=== PATIENT | female | born 1980 | race Caucasian/White ===

== ENCOUNTER → 2016-09-09 | Outpatient (CLI) | payer OTHER | LOC: LAB 08:08 | DX: Z00.00 Encounter for general adult medical examination without abnormal findings (principal); D22.4 Melanocytic nevi of scalp and neck ==

== ENCOUNTER → 2017-04-27 | Outpatient (CLI) | payer OTHER | LOC: RAD 08:57 | DX: M47.816 Spondylosis without myelopathy or radiculopathy, lumbar region (principal) ==

== ENCOUNTER → 2017-05-17 | Outpatient (CLI) | payer OTHER | LOC: RAD 10:00 | DX: M47.816 Spondylosis without myelopathy or radiculopathy, lumbar region (principal); M51.46 Schmorl's nodes, lumbar region ==

== ENCOUNTER 2017-05-19 15:00 | Outpatient (RCR) | payer OTHER | END 2017-05-19 15:30 | disposition home or self-care (01) | LOC: PT 15:00 | DX: M54.5 Low back pain (principal) | CPT/HCPCS: G0283-GP ==

== ENCOUNTER → 2017-07-06 | Outpatient (CLI) | payer OTHER ==
[2017-07-06 09:23] LABS: EOS # 0.2 (0.04-0.40); EOS % 1.4 % (1.0-5.0); HEMATOCRIT 37.9 % (37.0-47.0); HEMOGLOBIN 11.9 g/dL (12.5-16.0); MEAN CELL VOLUME 83 fl (78-100); MEAN CORPUSCULAR HEMOGLOBIN 26 pg (27-31); MEAN CORPUSCULAR HGB CONC 31 g/dL (33-37); MEAN PLATELET VOLUME 8.8 fl (7.4-10.4); MONO # 0.7 (0.20-0.80); NEU # 8.2 (1.40-6.50); PLATELET COUNT 372 K/mm3 (130-400); RED BLOOD COUNT 4.57 M/mm3 (4.10-5.30); RED CELL DISTRIBUTION WIDTH 15.6 % (11.5-14.5); WHITE BLOOD COUNT 11.1 K/mm3 (4.8-10.8)
== END ==
LOC: LAB 09:09
PROVIDERS: Nurse Practitioner Family
DX: R42 Dizziness and giddiness (principal); R45.4 Irritability and anger; E28.2 Polycystic ovarian syndrome; Z88.5 Allergy status to narcotic agent

== ENCOUNTER → 2017-09-28 | Outpatient (CLI) | payer OTHER | LOC: LAB 07:59 | DX: E11.9 Type 2 diabetes mellitus without complications (principal); Z88.5 Allergy status to narcotic agent ==

== ENCOUNTER → 2018-02-01 | Outpatient (CLI) | payer OTHER ==
[2018-02-01 09:26] LABS: EOS # 0.2 (0.04-0.40); EOS % 2.4 % (1.0-5.0); HEMATOCRIT 35.5 % (37.0-47.0); HEMOGLOBIN 11.1 g/dL (12.5-16.0); LYMPH# 2.1 (1.50-4.00); MEAN CELL VOLUME 87 fl (78-100); MEAN CORPUSCULAR HEMOGLOBIN 27 pg (27-31); MEAN CORPUSCULAR HGB CONC 31 g/dL (33-37); MEAN PLATELET VOLUME 8.7 fl (7.4-10.4); MONO # 0.6 (0.20-0.80); NEU # 4.7 (1.40-6.50); PLATELET COUNT 392 K/mm3 (130-400); RED BLOOD COUNT 4.09 M/mm3 (4.10-5.30); RED CELL DISTRIBUTION WIDTH 14.8 % (11.5-14.5); WHITE BLOOD COUNT 7.6 K/mm3 (4.8-10.8)
[2018-02-01 09:30] LABS: ALBUMIN 4.2 g/dL (3.5-5.0); BUN/CREATININE RATIO 16.9 (6.0-26.0); CALCIUM 8.8 mg/dL (8.4-10.2); POTASSIUM 4.2 mmol/L (3.6-5.0); TOTAL BILIRUBIN 0.4 mg/dL (0.2-1.3); TOTAL PROTEIN 7.6 g/dL (6.3-8.2)
[2018-02-01 10:34] LABS: URINE APPEARANCE HAZY; URINE BILIRUBIN NEGATIVE (NEGATIVE); URINE BLOOD TRACE (NEGATIVE); URINE COLOR YELLOW; URINE GLUCOSE NEGATIVE (NEGATIVE); URINE KETONE NEGATIVE (NEGATIVE); URINE LEUKOCYTE ESTERASE 2+ (NEGATIVE); URINE MUCUS PRESENT (NOT PRESENT); URINE NITRATE NEGATIVE (NEGATIVE); URINE PROTEIN(semi-quant) TRACE mg/dL (NEGATIVE); URINE UROBILINOGEN NORMAL (NORMAL); URINE WBC 16-30 /hpf (0-3)
== END ==
LOC: RAD 08:55
PROVIDERS: Nurse Practitioner Family
DX: R10.2 Pelvic and perineal pain (principal); E28.2 Polycystic ovarian syndrome; R42 Dizziness and giddiness

== ENCOUNTER → 2018-07-11 | Outpatient (CLI) | payer OTHER ==
[~2018-07-11] VITALS: Ht 167.6 cm; Wt 95.0 kg
[~2018-07-11] MED LIST: CLARITIN 1010 MG/TAB PO; HCTZ 25MG25 MG PO; IRON90 MG PO; MULTIVITAMIN1 SGL PO; PROBIOTIC1 EAC1 PO
[2018-07-11 08:44] LABS: EOS # 0.2 (0.04-0.40); EOS % 2.6 % (1.0-5.0); HEMATOCRIT 39.9 % (37.0-47.0); LYMPH# 1.7 (1.50-4.00); MEAN CELL VOLUME 85 fl (78-100); MEAN CORPUSCULAR HEMOGLOBIN 28 pg (27-31); MEAN CORPUSCULAR HGB CONC 33 g/dL (33-37); MEAN PLATELET VOLUME 8.7 fl (7.4-10.4); MONO # 0.7 (0.20-0.80); NEU # 5.9 (1.40-6.50); PLATELET COUNT 400 K/mm3 (130-400); RED BLOOD COUNT 4.68 M/mm3 (4.10-5.30); RED CELL DISTRIBUTION WIDTH 14.7 % (11.5-14.5); WHITE BLOOD COUNT 8.6 K/mm3 (4.8-10.8)
[2018-07-11 09:15] LABS: ALBUMIN 4.9 g/dL (3.5-5.0); CALCIUM 9.5 mg/dL (8.4-10.2); POTASSIUM 4.1 mmol/L (3.6-5.0); TOTAL BILIRUBIN 0.7 mg/dL (0.2-1.3); TOTAL PROTEIN 8.1 g/dL (6.3-8.2)
[2018-07-11 13:28] VITALS: BP 115/69
== END ==
LOC: AMSURD 08:04
PROVIDERS: Physician Assistant
DX: I07.1 Rheumatic tricuspid insufficiency (principal); R60.1 Generalized edema; R06.00 Dyspnea, unspecified; R53.83 Other fatigue

== ENCOUNTER → 2019-04-20 | Outpatient (CLI) | payer OTHER ==
[2018-07-11 13:28] VITALS: BP 115/69
[2019-04-20 13:47] LABS: EOS # 0.2 (0.04-0.40); EOS % 2.3 % (1.0-5.0); HEMATOCRIT 38.6 % (37.0-47.0); HEMOGLOBIN 12.5 g/dL (12.5-16.0); MEAN CELL VOLUME 87 fl (78-100); MEAN CORPUSCULAR HEMOGLOBIN 28 pg (27-31); MEAN CORPUSCULAR HGB CONC 32 g/dL (33-37); MEAN PLATELET VOLUME 8.5 fl (7.4-10.4); MONO # 0.7 (0.20-0.80); NEU # 5.6 (1.40-6.50); PLATELET COUNT 412 K/mm3 (130-400); RED BLOOD COUNT 4.43 M/mm3 (4.10-5.30); RED CELL DISTRIBUTION WIDTH 14.9 % (11.5-14.5); WHITE BLOOD COUNT 8.6 K/mm3 (4.8-10.8)
[2019-04-20 13:51] LABS: ALBUMIN 4.4 g/dL (3.5-5.0); POTASSIUM 3.9 mmol/L (3.5-5.1)
[2019-04-20 13:52] LABS: CALCIUM 9.6 mg/dL (8.3-10.5)
[2019-04-20 13:53] LABS: TOTAL PROTEIN 7.9 g/dL (6.4-8.3)
[2019-04-20 13:55] LABS: TOTAL BILIRUBIN 0.5 mg/dL (0.2-1.2)
[2019-04-20 15:19] LABS: URINE APPEARANCE HAZY; URINE BILIRUBIN NEGATIVE (NEGATIVE); URINE BLOOD 250 ery/uL (NEGATIVE); URINE COLOR YELLOW; URINE GLUCOSE NEGATIVE (NEGATIVE); URINE KETONE NEGATIVE (NEGATIVE); URINE LEUKOCYTE ESTERASE TRACE (NEGATIVE); URINE NITRATE NEGATIVE (NEGATIVE); URINE PROTEIN(semi-quant) NEGATIVE (NEGATIVE); URINE UROBILINOGEN NORMAL (NORMAL)
== END ==
LOC: LAB 13:28
PROVIDERS: Physician Assistant
DX: E16.2 Hypoglycemia, unspecified (principal); E28.2 Polycystic ovarian syndrome; R10.32 Left lower quadrant pain

== ENCOUNTER → 2019-04-27 | Outpatient (CLI) | payer OTHER ==
[2018-07-11 13:28] VITALS: BP 115/69
== END ==
LOC: RAD 09:07
DX: E28.2 Polycystic ovarian syndrome (principal); E16.2 Hypoglycemia, unspecified
CPT/HCPCS: Q9967

== ENCOUNTER 2019-12-27 08:30 | Outpatient (RCR) | payer OTHER ==
[2018-07-11 13:28] VITALS: BP 115/69
== END 2020-03-18 | disposition home or self-care (01) ==
LOC: PT
DX: M79.601 Pain in right arm (principal); R20.0 Anesthesia of skin

== ENCOUNTER → 2020-01-15 | Outpatient (CLI) | payer OTHER ==
[2018-07-11 13:28] VITALS: BP 115/69
== END ==
LOC: LAB 12:04
DX: Z20.828 Contact with and (suspected) exposure to other viral communicable diseases (principal)

== ENCOUNTER → 2020-04-24 | Outpatient (CLI) | payer OTHER ==
[2018-07-11 13:28] VITALS: BP 115/69
== END ==
LOC: LAB 07:49
DX: Z20.828 Contact with and (suspected) exposure to other viral communicable diseases (principal)

== ENCOUNTER → 2020-05-15 | Outpatient (CLI) | payer OTHER ==
[2018-07-11 13:28] VITALS: BP 115/69
[2020-05-15 08:21] LABS: EOS # 0.3 (0.04-0.40); EOS % 4.8 % (1.0-5.0); HEMATOCRIT 40.2 % (37.0-47.0); HEMOGLOBIN 13.1 g/dL (12.5-16.0); LYMPH# 1.8 (1.50-4.00); MEAN CELL VOLUME 88 fl (78-100); MEAN CORPUSCULAR HEMOGLOBIN 29 pg (27-31); MEAN CORPUSCULAR HGB CONC 33 g/dL (33-37); MEAN PLATELET VOLUME 8.4 fl (7.4-10.4); MONO # 0.5 (0.20-0.80); NEU # 4.3 (1.40-6.50); PLATELET COUNT 379 K/mm3 (130-400); RED BLOOD COUNT 4.56 M/mm3 (4.10-5.30); RED CELL DISTRIBUTION WIDTH 13.8 % (11.5-14.5); WHITE BLOOD COUNT 6.9 K/mm3 (4.8-10.8)
[2020-05-15 08:24] LABS: ALBUMIN 4.4 g/dL (3.5-5.0); POTASSIUM 4.4 mmol/L (3.5-5.1)
[2020-05-15 08:25] LABS: CALCIUM 9.2 mg/dL (8.3-10.5)
[2020-05-15 08:26] LABS: TOTAL PROTEIN 7.5 g/dL (6.4-8.3)
[2020-05-15 08:28] LABS: TOTAL BILIRUBIN 0.4 mg/dL (0.2-1.2)
[2020-05-15 09:29] LABS: ERYTHROCYTE SEDIMENTATION RATE 28 mm/hr (0-20)
== END ==
LOC: LAB 07:56
PROVIDERS: Physician Assistant
DX: Z13.29 Encounter for screening for other suspected endocrine disorder (principal); K90.9 Intestinal malabsorption, unspecified; F41.9 Anxiety disorder, unspecified; E78.5 Hyperlipidemia, unspecified; I73.00 Raynaud's syndrome without gangrene; E28.2 Polycystic ovarian syndrome; R63.5 Abnormal weight gain; R73.9 Hyperglycemia, unspecified; R50.9 Fever, unspecified

== ENCOUNTER → 2020-05-17 | Outpatient (CLI) | payer OTHER ==
[2018-07-11 13:28] VITALS: BP 115/69
== END ==
LOC: RAD 08:16
DX: R59.0 Localized enlarged lymph nodes (principal); R68.89 Other general symptoms and signs

== ENCOUNTER → 2021-02-07 | Outpatient (CLI) | payer OTHER | LOC: LAB 09:19 | DX: N89.8 Other specified noninflammatory disorders of vagina (principal) ==

== ENCOUNTER → 2021-03-03 | Outpatient (REF) | LOC: LAB 07:24 | DX: Z20.822 Contact with and (suspected) exposure to COVID-19 (principal) ==

== ENCOUNTER → 2021-05-08 | Outpatient (REF) | LOC: LAB 10:07 | DX: Z20.822 Contact with and (suspected) exposure to COVID-19 (principal) ==

== ENCOUNTER → 2021-05-12 | Outpatient (REF) | LOC: LAB 08:57 | DX: Z20.822 Contact with and (suspected) exposure to COVID-19 (principal) ==

== ENCOUNTER → 2021-12-18 | Outpatient (CLI) | payer OTHER ==
[2021-12-19 09:38] LABS: AFFIRM VAGINITIS PANEL RESULTS AMS
[2021-12-23 07:34] LABS: HERPES SIMPLEX TYPE 1 IGG 0.09 Index (()); HERPES SIMPLEX TYPE 1 IGG INTP Negative (Negative); HERPES SIMPLEX TYPE 2 IGG 0.08 Index (())
== END ==
LOC: LAB 16:02
PROVIDERS: Physician Assistant
DX: Z20.9 Contact with and (suspected) exposure to unspecified communicable disease (principal)

== ENCOUNTER → 2022-04-28 | Outpatient (CLI) | payer OTHER ==
[2022-04-28 09:12] LABS: BASO # 0.02 K/mm3 (0.02-0.10); EOS # 0.18 K/mm3 (0.04-0.40); EOS % 1.9 % (1.0-5.0); HEMATOCRIT 41.2 % (37.0-47.0); HEMOGLOBIN 13.4 g/dL (12.5-16.0); LYMPH# 1.88 K/mm3 (1.50-4.00); MEAN CELL VOLUME 88 fl (78-100); MEAN CORPUSCULAR HEMOGLOBIN 29 pg (27-31); MEAN CORPUSCULAR HGB CONC 33 g/dL (33-37); MEAN PLATELET VOLUME 8.9 fl (7.4-10.4); MONO # 0.59 K/mm3 (0.20-0.80); NEU # 6.61 K/mm3 (1.40-6.50); PLATELET COUNT 369 K/mm3 (130-400); RED BLOOD COUNT 4.67 M/mm3 (4.10-5.30); RED CELL DISTRIBUTION WIDTH 13.7 % (11.5-14.5); WHITE BLOOD COUNT 9.3 K/mm3 (4.8-10.8)
[2022-04-28 09:17] LABS: ALBUMIN 4.5 g/dL (3.5-5.0); POTASSIUM 4.8 mmol/L (3.5-5.1)
[2022-04-28 09:20] LABS: TOTAL PROTEIN 7.6 g/dL (6.4-8.3)
[2022-04-28 09:22] LABS: TOTAL BILIRUBIN 0.7 mg/dL (0.2-1.2)
== END ==
LOC: LAB 08:06
PROVIDERS: Physician Assistant
DX: Z00.00 Encounter for general adult medical examination without abnormal findings (principal); Z12.39 Encounter for other screening for malignant neoplasm of breast; Z13.220 Encounter for screening for lipoid disorders; Z13.29 Encounter for screening for other suspected endocrine disorder; F41.1 Generalized anxiety disorder; F43.0 Acute stress reaction; Z13.1 Encounter for screening for diabetes mellitus; K90.9 Intestinal malabsorption, unspecified; E16.2 Hypoglycemia, unspecified

== ENCOUNTER → 2023-05-25 | Outpatient (CLI) | payer OTHER | LOC: MAMMO 13:30 | DX: Z12.31 Encounter for screening mammogram for malignant neoplasm of breast (principal) ==

== ENCOUNTER → 2023-11-30 | Outpatient (CLI) | payer OTHER | LOC: MAMMO 07:09 | DX: N63.20 Unspecified lump in the left breast, unspecified quadrant (principal) ==

== ENCOUNTER → 2024-07-17 | Outpatient (CLI) | payer OTHER | LOC: MAMMO 15:07 | DX: Z12.31 Encounter for screening mammogram for malignant neoplasm of breast (principal) ==